=== PATIENT | male | born 1980 | race Caucasian/White ===

== ENCOUNTER 2018-01-06 03:01 | Emergency (ER) | payer MEDICAID ==
[~2018-01-06] VITALS: Ht 172.7 cm; Wt 84.3 kg
[~2018-01-06 03:01] MED LIST: ASPI-1153
[2018-01-06] MEDS ORDERED: MAGNESIUM/ALUMINUM HYDROXIDE/SIMETHICONE 30ML UDC PO STA (04:33)
[2018-01-06] MEDS ORDERED: VISCOUS LIDOCAINE 2% 15 ML UDC PO STA (04:33)
[2018-01-06] MEDS ORDERED: PANTOPRAZOLE SODIUM 40 MG/VIAL IV STA (04:33)
[2018-01-06] MEDS ORDERED: HALOPERIDOL LACTATE 5MG/ML VIAL IM ONE (04:45)
[2018-01-06 04:57] LABS: PROTHROMBIN TIME 10.7 sec (9.4-11.6)
[2018-01-06 04:58] LABS: BASOPHILS % 0.2 % (0.0-2.0); EOSINOPHILS % 0.3 % (0.0-5.0); HEMATOCRIT. 43.2 % (42.0-52.0); HEMOGLOBIN. 14.7 g/dL (14.0-18.0); LYMPHOCYTES % 10.4 % (20.0-50.0); MEAN CORPUSCULAR HEMOGLOBIN 31.5 pg (28.0-32.0); MEAN CORPUSCULAR VOLUME 92.7 fL (80.0-94.0); MEAN PLATELET VOLUME 9.4 fl (7.4-10.4); MONOCYTES % 7.3 % (2.0-8.0); NEUTROPHILS % 81.8 % (40.0-76.0); PLATELET 227 x1000/uL (130-400); RED BLOOD CELL COUNT 4.66 mill/uL (4.7-6.1); RED CELL DISTRIBUTION WIDTH 13.7 % (11.6-14.6)
[2018-01-06 05:00] LABS: CHLORIDE 105 mEq/L (98-107)
[2018-01-06 05:47] LABS: CLARITY URINE CLEAR (CLEAR); COLOR URINE YELLOW (YELLOW); KETONES URINE NEGATIVE (NEGATIVE); LEUKOCYTE ESTERASE URINE NEGATIVE (NEGATIVE); NITRITE URINE NEGATIVE (NEGATIVE); OCCULT BLOOD URINE NEGATIVE (NEGATIVE); PROTEIN URINE NEGATIVE (NEGATIVE); SPECIFIC GRAVITY URINE 1.021 (1.005-1.030)
[2018-01-06 06:13] VITALS: BP 124/65
== END 2018-01-06 06:14 | disposition home or self-care (01) ==
LOC: ER 03:01
DX: F12.288 Cannabis dependence with other cannabis-induced disorder (principal); Z79.82 Long term (current) use of aspirin
CPT/HCPCS: 36415; 71045; 80053; 81003; 83690; 85025; 85610; 96372; 96374; 99285; C9113; J1630; Z7610

== ENCOUNTER 2020-01-26 17:44 | Emergency (ER) | payer MEDICAID ==
[~2020-01-26] VITALS: Ht 172.7 cm; Wt 84.0 kg
[2020-01-26] MEDS ORDERED: KETOROLAC 30MG/ML VIAL IV STA (18:32)
[2020-01-26] MEDS ORDERED: MAGNESIUM/ALUMINUM HYDROXIDE/SIMETHICONE 30ML UDC PO STA (18:32)
[2020-01-26] MEDS ORDERED: VISCOUS LIDOCAINE 2% 15 ML UDC PO STA (18:32)
[2020-01-26] MEDS ORDERED: SODIUM CHLORIDE 0.9% 1,000 ML IV ONE (18:32)
[2020-01-26 19:24] LABS: BASOPHILS % 0.4 % (0.0-2.0); CLARITY URINE CLEAR (CLEAR); COLOR URINE DARK YELLOW (YELLOW); EOSINOPHILS % 1.7 % (0.0-5.0); HEMATOCRIT. 42.3 % (42.0-52.0); HEMOGLOBIN. 14.8 g/dL (14.0-18.0); KETONES URINE NEGATIVE (NEGATIVE); LEUKOCYTE ESTERASE URINE TRACE (NEGATIVE); LYMPHOCYTES % 21.3 % (20.0-50.0); MEAN CORPUSCULAR HEMOGLOBIN 32.6 pg (28.0-32.0); MEAN CORPUSCULAR VOLUME 93.1 fL (80.0-94.0); MEAN PLATELET VOLUME 9.1 fl (7.4-10.4); MONOCYTES % 5.9 % (2.0-8.0); NEUTROPHILS % 70.7 % (40.0-76.0); NITRITE URINE NEGATIVE (NEGATIVE); OCCULT BLOOD URINE NEGATIVE (NEGATIVE); PH URINE 7.5 (4.5-8.0); PLATELET 195 x1000/uL (130-400); PROTEIN URINE NEGATIVE (NEGATIVE); RED BLOOD CELL COUNT 4.54 mill/uL (4.7-6.1); RED CELL DISTRIBUTION WIDTH 13.8 % (11.6-14.6); SPECIFIC GRAVITY URINE 1.028 (1.005-1.030)
[2020-01-26 19:32] LABS: CHLORIDE 104 mEq/L (98-107)
[2020-01-26 19:33] LABS: PROTHROMBIN TIME 10.5 sec (9.6-11.0)
[2020-01-26 22:35] VITALS: BP 119/65
== END 2020-01-26 22:46 | disposition home or self-care (01) ==
LOC: ER 17:44
DX: K76.0 Fatty (change of) liver, not elsewhere classified (principal); K82.8 Other specified diseases of gallbladder; F10.10 Alcohol abuse, uncomplicated; Y90.9 Presence of alcohol in blood, level not specified
CPT/HCPCS: 36415; 76705; 80053; 81003; 83690; 85025; 85610; 96374; 99284; J1885; J7030

== ENCOUNTER 2020-05-22 15:23 | Emergency (ER) | payer MEDICAID ==
[~2020-05-22] VITALS: Ht 175.3 cm; Wt 89.0 kg
[2020-05-22] MEDS ORDERED: SODIUM CHLORIDE 0.9% 1,000 ML IV ONE (17:02)
[2020-05-22] MEDS ORDERED: FAMOTIDINE 20MG/2ML VIAL IV STA (17:02)
[2020-05-22] MEDS ORDERED: ONDANSETRON HCL 4MG/2ML INJ IV STA (17:02)
[2020-05-22 17:44] LABS: BASOPHILS % 0.4 % (0.0-2.0); EOSINOPHILS % 2.4 % (0.0-5.0); HEMOGLOBIN. 14.5 g/dL (14.0-18.0); LYMPHOCYTES % 39.1 % (20.0-50.0); MEAN CORPUSCULAR HEMOGLOBIN 31.9 pg (28.0-32.0); MEAN CORPUSCULAR VOLUME 92.4 fL (80.0-94.0); MEAN PLATELET VOLUME 8.8 fl (7.4-10.4); MONOCYTES % 8.4 % (2.0-8.0); NEUTROPHILS % 49.7 % (40.0-76.0); PLATELET 210 x1000/uL (130-400); RED BLOOD CELL COUNT 4.55 mill/uL (4.7-6.1)
[2020-05-22 17:45] LABS: CHLORIDE 107 mEq/L (98-107)
[2020-05-22 17:48] LABS: PROTHROMBIN TIME 10.9 sec (9.6-11.0)
[2020-05-22 18:02] LABS: HCG SCREEN NEGATIVE
[2020-05-22 19:29] LABS: CLARITY URINE CLEAR (CLEAR); COLOR URINE YELLOW (YELLOW); KETONES URINE NEGATIVE (NEGATIVE); LEUKOCYTE ESTERASE URINE NEGATIVE (NEGATIVE); NITRITE URINE NEGATIVE (NEGATIVE); OCCULT BLOOD URINE NEGATIVE (NEGATIVE); PH URINE 6.5 (4.5-8.0); PROTEIN URINE NEGATIVE (NEGATIVE); SPECIFIC GRAVITY URINE 1.003 (1.005-1.030); UROBILINOGEN URINE 0.2 E.U./dL (0.2-1.0)
[2020-05-22 20:20] VITALS: BP 126/72
== END 2020-05-22 20:20 | disposition home or self-care (01) ==
LOC: ER 15:23
DX: R10.13 Epigastric pain (principal); R00.2 Palpitations; F14.10 Cocaine abuse, uncomplicated; F17.210 Nicotine dependence, cigarettes, uncomplicated; Z71.6 Tobacco abuse counseling; R03.0 Elevated blood-pressure reading, without diagnosis of hypertension; E83.51 Hypocalcemia
CPT/HCPCS: 36415; 71045; 76705; 80053; 81003; 83690; 84484; 84703; 85025; 85610; 93005; 96374; 96375; 99285; J2405; J3490; J7030

== ENCOUNTER 2024-01-07 09:00 | Emergency (ER) | payer MEDICAID ==
[~2024-01-07] VITALS: Ht 177.8 cm; Wt 90.0 kg
[2024-01-07 09:05] VITALS: O2SAT 99
[2024-01-07 09:29] LABS: HEMATOCRIT. 46.1 % (42.0-52.0); HEMOGLOBIN. 15.7 g/dL (14.0-18.0); MEAN CORPUSCULAR HEMOGLOBIN 31.4 pg (28.0-32.0); MEAN CORPUSCULAR VOLUME 92.3 fL (80.0-94.0); MEAN PLATELET VOLUME 8.9 fl (7.4-10.4); PLATELET 200 x1000/uL (130-400); RED BLOOD CELL COUNT 4.99 mill/uL (4.7-6.1); RED CELL DISTRIBUTION WIDTH 13.7 % (11.6-14.6); WHITE BLOOD COUNT 6.5 x1000/uL (4.5-11.0)
[2024-01-07 09:33] LABS: DIFFERENTIAL COMMENT 1
[2024-01-07 09:55] LABS: ALANINE AMINOTRANSFERASE 25 IU/L (10-49); ALBUMIN 4.8 g/dL (3.2-4.8); ASPARTATE AMINOTRANSFERASE 25 IU/L (<34); BILIRUBIN TOTAL 0.4 mg/dL (0.1-1.0); CALCIUM 8.9 mg/dL (8.7-10.4); CARBON DIOXIDE 25 mEq/L (21-32); CHLORIDE 107 mEq/L (98-107); GLUCOSE 86 mg/dL (70-105); POTASSIUM 3.6 mEq/L (3.5-5.1); SODIUM 136 mEq/L (136-145); UREA NITROGEN BLOOD 13 mg/dL (9-23)
[2024-01-07 10:13] LABS: PLATELET ESTIMATE NORMAL
[2024-01-07 10:38] LABS: TROPONIN I HIGH SENSITIVITY < 4 ng/L (3.0-53)
[2024-01-07 10:48] LABS: CLARITY URINE CLEAR (CLEAR); COLOR URINE DARK YELLOW (YELLOW); GLUCOSE URINE NEGATIVE (NEGATIVE); KETONES URINE NEGATIVE (NEGATIVE); LEUKOCYTE ESTERASE URINE NEGATIVE (NEGATIVE); NITRITE URINE NEGATIVE (NEGATIVE); OCCULT BLOOD URINE TRACE (NEGATIVE); PH URINE 5.5 (4.5-8.0); PROTEIN URINE 1+ (NEGATIVE); SPECIFIC GRAVITY URINE 1.033 (1.005-1.030)
[2024-01-07 11:15] LABS: MUCUS URINE 2+ /lpf (NONE/TRACE)
[2024-01-07 11:16] LABS: SQUAMOUS EPITHELIAL CELL URINE RARE /lpf (RARE/1+)
[2024-01-07 11:17] LABS: RBC URINE 0-2 /hpf (0-2)
[2024-01-07 11:18] LABS: BACTERIA URINE TRACE
[2024-01-07 11:19] LABS: WBC URINE 0-2 /hpf (0-2)
[2024-01-07] MEDS ORDERED: AZIT250T12 MT (14:26)
[2024-01-07] MEDS ORDERED: IBUP-1523 MT (14:26)
[2024-01-07] MEDS ORDERED: DEXT30SU17 MT (14:26)
[2024-01-07] MEDS ORDERED: TOPUD MT (14:26)
[2024-01-07 14:40] VITALS: BP 134/79; PULSE 77; RESP 18; TEMP 98.2
== END 2024-01-07 14:42 | disposition home or self-care (01) ==
LOC: ER 09:00
DX: J40 Bronchitis, not specified as acute or chronic (principal); F14.10 Cocaine abuse, uncomplicated; F12.10 Cannabis abuse, uncomplicated; Z79.899 Other long term (current) drug therapy
CPT/HCPCS: 36415; 80053; 81003; 84484; 85025; 93005; 99284

== ENCOUNTER 2024-06-15 16:14 | Emergency (ER) | payer BC, MEDICAID ==
[~2024-06-15] VITALS: Ht 170.2 cm; Wt 61.0 kg
[~2024-06-15 16:14] MED LIST changes: +AZIT250T12 MT; +DEXT30SU17 MT; +IBUP-1523 MT; +TOPUD MT
[2024-06-15 16:46] VITALS: O2SAT 97
[2024-06-15 17:25] LABS: BASOPHILS % 0.7 % (0.0-2.0); EOSINOPHILS % 1.4 % (0.0-5.0); HEMATOCRIT. 42.2 % (42.0-52.0); HEMOGLOBIN. 14.3 g/dL (14.0-18.0); LYMPHOCYTES % 19.7 % (20.0-50.0); MEAN CORPUSCULAR HEMOGLOBIN 32.1 pg (28.0-32.0); MEAN CORPUSCULAR HGB CONC 33.9 g/dL (31.0-37.0); MEAN CORPUSCULAR VOLUME 94.6 fL (80.0-94.0); MEAN PLATELET VOLUME 8.7 fl (7.4-10.4); MONOCYTES % 6.1 % (2.0-8.0); NEUTROPHILS % 72.1 % (40.0-76.0); PLATELET 237 x1000/uL (130-400); RED BLOOD CELL COUNT 4.46 mill/uL (4.7-6.1); RED CELL DISTRIBUTION WIDTH 13.5 % (11.6-14.6)
[2024-06-15 17:29] LABS: CHLORIDE 104 mEq/L (98-107); POTASSIUM 3.7 mEq/L (3.5-5.1); SODIUM 136 mEq/L (136-145)
[2024-06-15 17:30] LABS: CARBON DIOXIDE 25 mEq/L (21-32)
[2024-06-15 17:31] LABS: CALCIUM 9.8 mg/dL (8.7-10.4)
[2024-06-15 17:35] LABS: GLUCOSE 127 mg/dL (70-105)
[2024-06-15 17:36] LABS: UREA NITROGEN BLOOD 13 mg/dL (9-23)
[2024-06-15 17:37] LABS: ALANINE AMINOTRANSFERASE 28 IU/L (10-49); ALBUMIN 4.5 g/dL (3.2-4.8); ASPARTATE AMINOTRANSFERASE 23 IU/L (<34)
[2024-06-15 17:38] LABS: BILIRUBIN DIRECT 0.3 mg/dL (<=3.0); BILIRUBIN TOTAL 0.8 mg/dL (0.1-1.0); PROTEIN TOTAL 7.5 g/dL (6.0-8.3)
[2024-06-15] MEDS: KETOROLAC 30MG/ML VIAL IM STA (17:46)
[2024-06-15] MEDS: ONDANSETRON 4MG ODT PO STA (17:46)
[2024-06-15] MEDS ORDERED: AMOX1TAB16 MT (19:12)
[2024-06-15] MEDS ORDERED: IBUP-1523 MT (19:29)
[2024-06-15 20:45] VITALS: BP 132/80; PULSE 79; RESP 19; TEMP 36.78072; O2SAT 100
== END 2024-06-15 20:48 | disposition home or self-care (01) ==
LOC: ER 16:14
DX: K57.92 Diverticulitis of intestine, part unspecified, without perforation or abscess without bleeding (principal); F14.10 Cocaine abuse, uncomplicated; F12.10 Cannabis abuse, uncomplicated
CPT/HCPCS: 80076; 80048; 85025; 36415; 74176; 96372; 99285; Q0162; J1885; Z7610